=== PATIENT | male | born 1950 | race African-American/Black ===

== ENCOUNTER 2022-05-15 09:15 | Inpatient (IN) | payer MEDICARE, OTHER ==
[~2022-05-15] VITALS: Ht 175.3 cm; Wt 50.6 kg
[~2022-05-15 09:15] MED LIST: ALBU18HF2 IH; TOPUD PO
[2022-05-15] MEDS ORDERED: SODIUM CHLORIDE 0.9% 1000ML BAG (SEPSIS BOLUS) IV ONE (09:30)
[2022-05-15 09:57] LABS: BASOPHILS % 1.1 % (0.0-2.0); EOSINOPHILS % 1.5 % (0.0-5.0); HEMATOCRIT. 37.6 % (42.0-52.0); HEMOGLOBIN. 12.5 g/dL (14.0-18.0); LYMPHOCYTES % 46.1 % (20.0-50.0); MEAN CORPUSCULAR VOLUME 84.3 fL (80.0-94.0); MEAN PLATELET VOLUME 7.8 fl (7.4-10.4); MONOCYTES % 14.7 % (2.0-8.0); NEUTROPHILS % 36.6 % (40.0-76.0); PLATELET 157 x1000/uL (130-400); RED BLOOD CELL COUNT 4.46 mill/uL (4.7-6.1); RED CELL DISTRIBUTION WIDTH 16.9 % (11.6-14.6)
[2022-05-15 10:05] LABS: CHLORIDE 107 mEq/L (98-107)
[2022-05-15 10:07] LABS: INR 1.1; PROTHROMBIN TIME 11.8 sec (9.6-11.0)
[2022-05-15] MEDS ORDERED: METHYLPREDNISOLONE SOD SUCC 125 MG/2 ML VIAL IV STA (10:32)
[2022-05-15] MEDS ORDERED: ALBUTEROL (0.083%) 2.5MG/3ML NEB HHN STA (10:32)
[2022-05-15] MEDS ORDERED: MAGNESIUM 2 G PREMIX 50 ML IV STA (10:32)
[2022-05-15] MEDS ORDERED: IPRATROPIUM BROMIDE (0.02%) 0.5MG/2.5ML NEB HHN STA (10:32)
[2022-05-15 11:10] LABS: BG BASE EXCESS -0.8 mmol/L (-2.0-2.0); BG CARBOXYHEMOGLOBIN 0.4 % (0.5-1.5); BG DEOXYHEMOGLOBIN 2.2 % (0.0-5.0); BG FRACTION INSPIRED OXYGEN 28; BG HCO3 ACT 23.9 mmol/L (22.0-26.0); BG METHEMOGLOBIN 0.5 % (0.0-1.5); BG OXYGEN SATURATION 97.8 % (92.0-98.5); BG OXYHEMOGLOBIN 96.9 % (94.0-97.0); BG PCO2 39.8 mmHg (35.0-45.0); BG PH 7.396 (7.350-7.450); BG PO2 118.5 mmHg (75.0-100.0); BG SAMPLE SITE RIGHT BRACHIAL; BG TOTAL HEMOGLOBIN 12.1 g/dL (12.0-18.0); BG VENT MODE NASAL CANNULA
[2022-05-15 12:44] LABS: CLARITY URINE CLEAR (CLEAR); COLOR URINE YELLOW (YELLOW); KETONES URINE NEGATIVE (NEGATIVE); LEUKOCYTE ESTERASE URINE NEGATIVE (NEGATIVE); NITRITE URINE NEGATIVE (NEGATIVE); OCCULT BLOOD URINE NEGATIVE (NEGATIVE); PH URINE 6.5 (4.5-8.0); PROTEIN URINE NEGATIVE (NEGATIVE); SPECIFIC GRAVITY URINE 1.019 (1.005-1.030); UROBILINOGEN URINE 0.2 E.U./dL (0.2-1.0)
[2022-05-15] MEDS ORDERED: ONDANSETRON HCL 4MG/2ML INJ IV PRN (15:45)
[2022-05-15] MEDS ORDERED: IPRATROPIUM/ALBUTEROL 0.5-3(2.5)MG/3ML NEB HHN PRN (15:45)
[2022-05-15 18:23] VITALS: BP 133/94
[2022-05-15] MEDS: METHYLPREDNISOLONE SOD SUCC 125 MG/2 ML VIAL IV SCH (18:42)
[2022-05-15 20:00] VITALS: BP 147/82
[2022-05-15] MEDS: IPRATROPIUM/ALBUTEROL 0.5-3(2.5)MG/3ML NEB HHN SCH (21:20)
[2022-05-16] VITALS: BP 141/72
[2022-05-16] MEDS: IPRATROPIUM/ALBUTEROL 0.5-3(2.5)MG/3ML NEB HHN SCH ×4 (02:49→21:29)
[2022-05-16 04:00] VITALS: BP 122/66
[2022-05-16] MEDS: METHYLPREDNISOLONE SOD SUCC 125 MG/2 ML VIAL IV SCH ×4 (05:47→17:09)
[2022-05-16 08:00] VITALS: BP 126/81
[2022-05-16 08:33] LABS: HEMATOCRIT. 38.2 % (42.0-52.0); HEMOGLOBIN. 12.7 g/dL (14.0-18.0); MEAN CORPUSCULAR HEMOGLOBIN 28.2 pg (28.0-32.0); MEAN CORPUSCULAR VOLUME 84.8 fL (80.0-94.0); PLATELET 141 x1000/uL (130-400); RED BLOOD CELL COUNT 4.51 mill/uL (4.7-6.1); RED CELL DISTRIBUTION WIDTH 17.4 % (11.6-14.6)
[2022-05-16] MEDS: ACETAMINOPHEN 325MG TABLET PO PRN (09:43)
[2022-05-16 12:00] VITALS: BP 124/62
[2022-05-16 16:00] VITALS: BP 105/62
[2022-05-16] MEDS ORDERED: VANCOMYCIN 1GM PMX (XELLIA) 200 ML IV NR (18:00)
[2022-05-16 20:00] VITALS: BP 100/66
[2022-05-16 23:42] LABS: PLATELET ESTIMATE NORMAL
[2022-05-17] VITALS (7 sets, daily range): BP systolic 92–116; BP diastolic 56–73
[2022-05-17 00:42] LABS: HEMATOCRIT. 34.8 % (42.0-52.0); HEMOGLOBIN. 11.6 g/dL (14.0-18.0); MEAN CORPUSCULAR HEMOGLOBIN 28.2 pg (28.0-32.0); MEAN CORPUSCULAR VOLUME 84.7 fL (80.0-94.0); PLATELET 165 x1000/uL (130-400); RED BLOOD CELL COUNT 4.11 mill/uL (4.7-6.1); RED CELL DISTRIBUTION WIDTH 17.4 % (11.6-14.6)
[2022-05-17] MEDS: IPRATROPIUM/ALBUTEROL 0.5-3(2.5)MG/3ML NEB HHN SCH ×3 (01:01→13:38)
[2022-05-17] MEDS: TAMSULOSIN HCL 0.4MG SR CAPSULE PO SCH ×2 (01:48→09:04)
[2022-05-17 02:12] LABS: CHLORIDE 105 mEq/L (98-107)
[2022-05-17 05:41] LABS: PLATELET ESTIMATE NORMAL
[2022-05-17] MEDS: METHYLPREDNISOLONE SOD SUCC 125 MG/2 ML VIAL IV SCH ×2 (06:00)
[2022-05-17] MEDS ORDERED: VANCOMYCIN 500MG PREMIX 100 ML IV SCH (06:00)
[2022-05-17] MEDS ORDERED: VANCOMYCIN 750MG PMX (XELLIA) 150 ML IV SCH (13:00)
[2022-05-17] MEDS ORDERED: VANCOMYCIN 750MG PREMIX 150 ML IV SCH (13:00)
[2022-05-17] MEDS ORDERED: LIDOCAINE HCL 1% 10 MG/ML 10ML VIAL ONE (13:16)
[2022-05-17] MEDS: ACETAMINOPHEN 325MG TABLET PO PRN (16:14)
[2022-05-17] MEDS: METHYLPREDNISOLONE SOD SUCC 40 MG/ML VIAL IV SCH ×2 (16:14→22:27)
[2022-05-18] VITALS (7 sets, daily range): BP systolic 99–125; BP diastolic 59–72
[2022-05-18] MEDS: IPRATROPIUM/ALBUTEROL 0.5-3(2.5)MG/3ML NEB HHN SCH ×4 (00:45→19:59)
[2022-05-18] MEDS ORDERED: VANCOMYCIN 500MG PREMIX 100 ML IV SCH (01:00)
[2022-05-18] MEDS: TAMSULOSIN HCL 0.4MG SR CAPSULE PO SCH (08:22)
[2022-05-18] MEDS: METHYLPREDNISOLONE SOD SUCC 40 MG/ML VIAL IV SCH ×2 (08:22→22:37)
[2022-05-18 10:07] LABS: CHLORIDE 108 mEq/L (98-107)
[2022-05-18] MEDS ORDERED: P50 MT (10:22)
[2022-05-18] MEDS ORDERED: FINA5TAB11 PO (10:22)
[2022-05-18] MEDS ORDERED: FLUT1DIS3 INH (10:22)
[2022-05-18] MEDS ORDERED: TAMS-11 PO (10:22)
[2022-05-18] MEDS: FINASTERIDE 5MG TABLET PO SCH (13:16)
[2022-05-19] VITALS: BP 118/70
[2022-05-19] MEDS: IPRATROPIUM/ALBUTEROL 0.5-3(2.5)MG/3ML NEB HHN SCH ×4 (01:16→20:29)
[2022-05-19 04:00] VITALS: BP 121/73
[2022-05-19 08:00] VITALS: BP 101/71
[2022-05-19] MEDS: METHYLPREDNISOLONE SOD SUCC 40 MG/ML VIAL IV SCH ×2 (09:03→21:17)
[2022-05-19] MEDS: TAMSULOSIN HCL 0.4MG SR CAPSULE PO SCH (09:04)
[2022-05-19] MEDS: FINASTERIDE 5MG TABLET PO SCH (09:04)
[2022-05-19 12:00] VITALS: BP 115/68
[2022-05-19 16:00] VITALS: BP 113/77
[2022-05-19 20:00] VITALS: BP 114/69
[2022-05-19] MEDS: ACETAMINOPHEN 325MG TABLET PO PRN (21:20)
[2022-05-20 00:03] VITALS: BP 119/74
[2022-05-20] MEDS: IPRATROPIUM/ALBUTEROL 0.5-3(2.5)MG/3ML NEB HHN SCH ×4 (02:02→20:42)
[2022-05-20 04:00] VITALS: BP 121/73
[2022-05-20 08:00] VITALS: BP 112/80
[2022-05-20] MEDS: FINASTERIDE 5MG TABLET PO SCH (08:50)
[2022-05-20] MEDS: TAMSULOSIN HCL 0.4MG SR CAPSULE PO SCH (08:50)
[2022-05-20] MEDS: METHYLPREDNISOLONE SOD SUCC 40 MG/ML VIAL IV SCH (08:51)
[2022-05-20 12:00] VITALS: BP 98/70
[2022-05-20 16:00] VITALS: BP 106/68
== END 2022-05-20 21:50 | DRG 140 ==
LOC: ER 09:34 → 8WST 13:18 → EDBEDREQTM 13:22 → EDBEDREQSVC 13:22 → EDBEDREQ 13:22 → ENRESERV 17:11
PROVIDERS: ADMIT Family Medicine; ATTEND Family Medicine
PROC: 02HV33Z Insertion of Infusion Device into Superior Vena Cava, Percutaneous Approach (ICD-10-PCS; principal; 2022-05-17)
PROC: B5181ZA Fluoroscopy of Superior Vena Cava using Low Osmolar Contrast, Guidance (ICD-10-PCS; 2022-05-17)
PROC: B548ZZA Ultrasonography of Superior Vena Cava, Guidance (ICD-10-PCS; 2022-05-17)
DX: J44.1 Chronic obstructive pulmonary disease with (acute) exacerbation (principal); J96.00 Acute respiratory failure, unspecified whether with hypoxia or hypercapnia; Z20.822 Contact with and (suspected) exposure to COVID-19; D72.829 Elevated white blood cell count, unspecified; T38.0X5A Adverse effect of glucocorticoids and synthetic analogues, initial encounter; Z87.891 Personal history of nicotine dependence; Z79.899 Other long term (current) drug therapy; Y92.89 Other specified places as the place of occurrence of the external cause
CPT/HCPCS: 36415; 36573; 36600; 71045; 80048; 80053; 80061; 81003; 82375; 82805; 83605; 84145; 84484; 85025; 85379; 87426; 93005; 93306; 94640; 97162; 97530; 99285; C1725; C9803; J2920; J2930; J3370; J3475; J3490; J7030; A4315